=== PATIENT | male | born 1960 | race Caucasian/White ===

== ENCOUNTER 2023-01-16 08:44 | Outpatient (CLI) | payer BC ==
[2023-01-16] MEDS ORDERED: Iopamidol-370 76% 500 ML MDV (1 ML CHARGE) ONE (13:58)
== END 2023-01-16 08:45 | disposition home or self-care (01) ==
LOC: BICCT 08:44
PROVIDERS: ATTEND Internal Medicine
DX: C61 Malignant neoplasm of prostate (principal); C79.89 Secondary malignant neoplasm of other specified sites; R59.0 Localized enlarged lymph nodes; R91.8 Other nonspecific abnormal finding of lung field
CPT/HCPCS: 71260; 74177; 82565; Q9967

== ENCOUNTER 2023-07-10 14:35 | Inpatient (IN) | payer BC ==
[2023-07-10] MEDS ORDERED: dilTIAZem 125 MG/25 ML SDV ONE (15:04)
[2023-07-10] MEDS ORDERED: Iopamidol-370 76% 500 ML MDV (1 ML CHARGE) ONE (15:20)
[2023-07-10 15:26] LABS: #Monocytes 0.6 thou/uL (0.11-0.59); #Neutrophils 5.1 thou/uL (1.40-6.50); %Basophils 0.5 % (0.0-1.0); %Eosinophils 0.3 % (0.0-10.0); %Lymphocytes 13.4 % (21.0-51.0); %Neutrophils 76.6 % (42.0-75.0); Hematocrit 39.9 % (42.0-52.0); Hemoglobin 14.2 g/dL (14.0-18.0); Mean Corpuscular HGB CONC 35.6 g/dL (32.0-36.0); Mean Corpuscular Volume 89.9 fl (78.0-98.0); Mean Platelet Volume 9.7 fL (7.4-10.4); Platelet Count 172 10x3/uL (130-400); RBC Distribution Width 11.9 % (11.5-14.5); Red Blood Cell (RBC) Count 4.44 mill/uL (4.70-6.10); White Blood Cell (WBC) Count 6.6 10x3/uL (4.8-10.8)
[2023-07-10 15:44] LABS: ALT (SGPT) 10 U/L (8-55); AST (SGOT) 14 U/L (5-34); Albumin 3.7 g/dL (3.4-4.8); Alkaline Phosphatase 169 U/L (40-110); Anion Gap 15 mmol/L (10-20); BUN (Urea Nitrogen) 11 mg/dL (8.4-25.7); Bilirubin, Total 1.3 mg/dL (0.2-1.2); Calc. Creatinine Clearance 0 mL/min (70-130); Calcium 8.6 mg/dL (7.8-10.44); Carbon Dioxide 20 mmol/L (23-31); Chloride 105 mmol/L (98-107); Estimated GFR 48; Globulin 2.5 g/dL (2.4-3.5); Glucose 132 mg/dL (80-115); Magnesium 1.9 mg/dL (1.6-2.6); Potassium 3.4 mmol/L (3.5-5.1); Protein, Total 6.2 g/dL (5.8-8.1); Sodium 137 mmol/L (136-145)
[2023-07-10 15:48] LABS: Troponin I 0.075 ng/mL (< 0.028)
[2023-07-10 19:02] LABS: Bacteria/HPF None Seen HPF (None Seen); Bilirubin Negative (Negative); Blood, Urine 3+ (Negative); CAUTI Indications for Culture Dysuria,urgency,freq; Clarity Clear (Clear); Glucose, Urine (Dipstick) Normal (Negative); Ketone, Urine 10 mg/dL (Negative); Leukocyte Negative Leu/uL (Negative); Nitrite Negative (Negative); Protein, Urine (Dipstick) 20 mg/dL (Neg-Trace); RBC/HPF 21-50 HPF (0-3); Specific Gravity, Urine 1.019 (1.002-1.036); Squamous Epithelial 0-3 HPF (0-3); Urobilinogen Normal mg/dL (Less than 2); WBC/HPF 0-3 HPF (0-3)
[2023-07-10 19:03] LABS: Urine Culture Reflex No No
[2023-07-10 20:53] LABS: Troponin I 0.069 ng/mL (< 0.028)
[2023-07-10] MEDS ORDERED: HYDROcodone/Acetaminophen 5/325 mg Tablet PO PRN (21:53)
[2023-07-10] MEDS ORDERED: Ondansetron ODT 4 MG TAB PO PRN (21:53)
[2023-07-10] MEDS ORDERED: Electrolyte Replacement Protocol 1 EACH FS SCH (21:55)
[2023-07-11 00:23] LABS: Troponin I 0.058 ng/mL (< 0.028)
[2023-07-11] MEDS: Magnesium 2 GM/50 ML(in water) 2 GM in Premix 1 BAG IVPB SCH (00:37)
[2023-07-11] MEDS: Apixaban 5 MG TAB PO SCH ×3 (00:39→21:38)
[2023-07-11] MEDS: Potassium Chloride 20 MEQ TAB PO SCH ×2 (00:39→08:23)
[2023-07-11] MEDS: Acetaminophen 325 MG TAB PO PRN (00:40)
[2023-07-11] MEDS: Tamsulosin HCl 0.4 MG CAP PO SCH ×2 (00:40→21:38)
[2023-07-11 04:52] LABS: #Eosinphils 0.1 thou/uL (0.0-0.7); #Monocytes 0.6 thou/uL (0.11-0.59); #Neutrophils 4.3 thou/uL (1.40-6.50); %Basophils 0.3 % (0.0-1.0); %Eosinophils 1.1 % (0.0-10.0); %Monocytes 9.4 % (0.0-10.0); %Neutrophils 65.9 % (42.0-75.0); Hematocrit 40.5 % (42.0-52.0); Hemoglobin 13.9 g/dL (14.0-18.0); Mean Corpuscular HGB CONC 34.3 g/dL (32.0-36.0); Mean Corpuscular Hemoglobin 31.3 pg (27.0-31.0); Mean Corpuscular Volume 91.2 fl (78.0-98.0); Mean Platelet Volume 10.4 fL (7.4-10.4); Platelet Count 167 10x3/uL (130-400); RBC Distribution Width 12.2 % (11.5-14.5); Red Blood Cell (RBC) Count 4.44 mill/uL (4.70-6.10); White Blood Cell (WBC) Count 6.6 10x3/uL (4.8-10.8)
[2023-07-11 05:19] LABS: Anion Gap 14 mmol/L (10-20); BUN (Urea Nitrogen) 13 mg/dL (8.4-25.7); Calc. Creatinine Clearance 78 mL/min (70-130); Calcium 8.7 mg/dL (7.8-10.44); Carbon Dioxide 21 mmol/L (23-31); Chloride 109 mmol/L (98-107); Estimated GFR 61; Glucose 89 mg/dL (80-115); Potassium 3.5 mmol/L (3.5-5.1); Sodium 140 mmol/L (136-145)
[2023-07-11] MEDS: Famotidine 20 MG TAB PO SCH (08:24)
[2023-07-11 13:27] LABS: Potassium 3.4 mmol/L (3.5-5.1)
[2023-07-11] MEDS ORDERED: dilTIAZem 125 MG in Sodium Chloride 0.9% 100 ML IVPB SCH (14:00)
[2023-07-11] MEDS ORDERED: Metoprolol Tartrate 50 MG TAB PO SCH (15:00)
[2023-07-11] MEDS ORDERED: oxyCODONE/Acetaminophen 5 mg/325 mg Tablet PO PRN (15:10)
[2023-07-11] MEDS: Lactated Ringer's 1,000 ML IV SCH (15:43)
[2023-07-11] MEDS: Metoprolol Tartrate 50 MG TAB PO SCH (15:43)
[2023-07-11] MEDS ORDERED: Metoprolol Tartrate 25 MG TAB PO SCH (21:00)
[2023-07-11] MEDS: Metoprolol Tartrate 100 MG TAB PO SCH (23:06)
[2023-07-12 04:33] LABS: #Eosinphils 0.1 thou/uL (0.0-0.7); #Monocytes 0.7 thou/uL (0.11-0.59); #Neutrophils 5.7 thou/uL (1.40-6.50); %Basophils 0.5 % (0.0-1.0); %Eosinophils 1.2 % (0.0-10.0); %Lymphocytes 18.1 % (21.0-51.0); %Monocytes 8.6 % (0.0-10.0); %Neutrophils 71.2 % (42.0-75.0); Hematocrit 40.3 % (42.0-52.0); Hemoglobin 13.1 g/dL (14.0-18.0); Mean Corpuscular HGB CONC 32.5 g/dL (32.0-36.0); Mean Corpuscular Hemoglobin 32.1 pg (27.0-31.0); Mean Corpuscular Volume 98.8 fl (78.0-98.0); Mean Platelet Volume 9.9 fL (7.4-10.4); Platelet Count 181 10x3/uL (130-400); RBC Distribution Width 12.2 % (11.5-14.5); Red Blood Cell (RBC) Count 4.08 mill/uL (4.70-6.10); White Blood Cell (WBC) Count 8.1 10x3/uL (4.8-10.8)
[2023-07-12 05:06] LABS: Anion Gap 11 mmol/L (10-20); BUN (Urea Nitrogen) 15 mg/dL (8.4-25.7); Calc. Creatinine Clearance 76 mL/min (70-130); Calcium 8.7 mg/dL (7.8-10.44); Carbon Dioxide 24 mmol/L (23-31); Chloride 109 mmol/L (98-107); Estimated GFR 60; Glucose 103 mg/dL (80-115); Potassium 4.2 mmol/L (3.5-5.1); Sodium 140 mmol/L (136-145)
[2023-07-12] MEDS: predniSONE 5 MG TAB PO SCH (09:41)
[2023-07-12] MEDS: Atorvastatin Calcium 40 MG TAB PO SCH (09:42)
[2023-07-12] MEDS: Lisinopril 10 MG TAB PO SCH (09:43)
[2023-07-12] MEDS: Folic Acid 1 MG TAB PO SCH (09:43)
[2023-07-12] MEDS: ABIRATERONE ACETATE 500 MG PO SCH (09:57)
[2023-07-12] MEDS: Lactated Ringer's 1,000 ML IV SCH (16:24)
[2023-07-13] MEDS: Metoprolol Tartrate 5 MG (5 mL) VIAL IVP SCH (00:56)
[2023-07-13] MEDS ORDERED: Metoprolol Tartrate 5 MG (5 mL) VIAL IVP SCH (01:30)
[2023-07-13] MEDS ORDERED: hydrALAZINE 25 MG TAB PO SCH (01:45)
[2023-07-13] MEDS: Lisinopril 5 MG TAB PO SCH (02:47)
[2023-07-13 03:06] LABS: #Basophils 0.1 thou/uL (0.0-0.2); #Eosinphils 0.1 thou/uL (0.0-0.7); #Monocytes 0.7 thou/uL (0.11-0.59); #Neutrophils 5.2 thou/uL (1.40-6.50); %Basophils 0.7 % (0.0-1.0); %Eosinophils 1.8 % (0.0-10.0); %Lymphocytes 19.7 % (21.0-51.0); %Monocytes 8.6 % (0.0-10.0); %Neutrophils 68.9 % (42.0-75.0); Hematocrit 36.7 % (42.0-52.0); Hemoglobin 12.7 g/dL (14.0-18.0); Mean Corpuscular HGB CONC 34.6 g/dL (32.0-36.0); Mean Corpuscular Hemoglobin 31.8 pg (27.0-31.0); Mean Platelet Volume 9.9 fL (7.4-10.4); Platelet Count 193 10x3/uL (130-400); RBC Distribution Width 11.9 % (11.5-14.5); White Blood Cell (WBC) Count 7.6 10x3/uL (4.8-10.8)
[2023-07-13 03:09] LABS: Mean Corpuscular Volume 91.8 fl (78.0-98.0)
[2023-07-13 03:33] LABS: Troponin I 0.036 ng/mL (< 0.028)
[2023-07-13 03:46] LABS: Anion Gap 11 mmol/L (10-20); BUN (Urea Nitrogen) 14 mg/dL (8.4-25.7); Calc. Creatinine Clearance 71 mL/min (70-130); Carbon Dioxide 27 mmol/L (23-31); Chloride 107 mmol/L (98-107); Estimated GFR 55; Glucose 92 mg/dL (80-115); Magnesium 1.9 mg/dL (1.6-2.6); Potassium 4.2 mmol/L (3.5-5.1); Sodium 141 mmol/L (136-145)
[2023-07-13] MEDS: Magnesium 2 GM/50 ML(in water) 2 GM in Premix 1 BAG IVPB SCH (08:31)
[2023-07-13] MEDS: Lactated Ringer's 1,000 ML IV SCH (12:14)
[2023-07-13] MEDS: Metoprolol Tartrate 50 MG TAB PO SCH (13:45)
[2023-07-13] MEDS: Enoxaparin 100 MG (1 mL) SYRINGE SC SCH (13:46)
[2023-07-13] MEDS: Metoprolol Tartrate 100 MG TAB PO SCH (21:21)
[2023-07-14 04:25] LABS: #Eosinphils 0.1 thou/uL (0.0-0.7); #Monocytes 0.5 thou/uL (0.11-0.59); #Neutrophils 4.5 thou/uL (1.40-6.50); %Basophils 0.5 % (0.0-1.0); %Eosinophils 2.1 % (0.0-10.0); %Lymphocytes 20.2 % (21.0-51.0); %Monocytes 8.2 % (0.0-10.0); %Neutrophils 68.8 % (42.0-75.0); Hematocrit 35.7 % (42.0-52.0); Hemoglobin 12.3 g/dL (14.0-18.0); Mean Corpuscular HGB CONC 34.5 g/dL (32.0-36.0); Mean Corpuscular Hemoglobin 31.2 pg (27.0-31.0); Mean Corpuscular Volume 90.6 fl (78.0-98.0); Mean Platelet Volume 10.2 fL (7.4-10.4); Platelet Count 183 10x3/uL (130-400); RBC Distribution Width 11.9 % (11.5-14.5); Red Blood Cell (RBC) Count 3.94 mill/uL (4.70-6.10); White Blood Cell (WBC) Count 6.6 10x3/uL (4.8-10.8)
[2023-07-14 04:55] LABS: Anion Gap 10 mmol/L (10-20); BUN (Urea Nitrogen) 13 mg/dL (8.4-25.7); Calc. Creatinine Clearance 78 mL/min (70-130); Calcium 8.5 mg/dL (7.8-10.44); Carbon Dioxide 25 mmol/L (23-31); Chloride 108 mmol/L (98-107); Estimated GFR 62; Glucose 115 mg/dL (80-115); Sodium 140 mmol/L (136-145)
[2023-07-14] MEDS: Potassium Bicarbonate/Cit Ac 20 MEQ TAB PO SCH (07:43)
[2023-07-14] MEDS: Enoxaparin 100 MG (1 mL) SYRINGE SC SCH (09:39)
[2023-07-14 14:38] LABS: Potassium 3.9 mmol/L (3.5-5.1)
[2023-07-15 04:46] LABS: #Eosinphils 0.1 thou/uL (0.0-0.7); #Monocytes 0.5 thou/uL (0.11-0.59); #Neutrophils 3.9 thou/uL (1.40-6.50); %Basophils 0.3 % (0.0-1.0); %Eosinophils 2.1 % (0.0-10.0); %Lymphocytes 21.4 % (21.0-51.0); %Monocytes 8.9 % (0.0-10.0); Hematocrit 33.9 % (42.0-52.0); Hemoglobin 11.3 g/dL (14.0-18.0); Mean Corpuscular HGB CONC 33.3 g/dL (32.0-36.0); Mean Corpuscular Hemoglobin 31.1 pg (27.0-31.0); Mean Platelet Volume 10.4 fL (7.4-10.4); Platelet Count 185 10x3/uL (130-400); Red Blood Cell (RBC) Count 3.63 mill/uL (4.70-6.10); White Blood Cell (WBC) Count 5.9 10x3/uL (4.8-10.8)
[2023-07-15 04:55] LABS: Mean Corpuscular Volume 93.4 fl (78.0-98.0)
[2023-07-15 05:20] LABS: Anion Gap 13 mmol/L (10-20); BUN (Urea Nitrogen) 17 mg/dL (8.4-25.7); Calc. Creatinine Clearance 77 mL/min (70-130); Calcium 8.4 mg/dL (7.8-10.44); Carbon Dioxide 26 mmol/L (23-31); Chloride 107 mmol/L (98-107); Estimated GFR 58; Glucose 91 mg/dL (80-115); Potassium 3.6 mmol/L (3.5-5.1); Sodium 142 mmol/L (136-145)
[2023-07-15] MEDS: Amlodipine 10 MG TAB PO SCH (14:50)
[2023-07-15] MEDS: Calcium Carbonate 500 MG ChewTAB PO PRN (16:27)
[2023-07-15] MEDS: oxyCODONE/Acetaminophen 5 mg/325 mg Tablet PO PRN (18:48)
[2023-07-15] MEDS: hydrALAZINE 20 MG/ML VIAL SLOW IVP SCH (22:18)
[2023-07-16 04:33] LABS: #Eosinphils 0.1 thou/uL (0.0-0.7); #Monocytes 0.5 thou/uL (0.11-0.59); #Neutrophils 5.4 thou/uL (1.40-6.50); %Basophils 0.4 % (0.0-1.0); %Eosinophils 1.1 % (0.0-10.0); %Monocytes 7.3 % (0.0-10.0); %Neutrophils 73.9 % (42.0-75.0); Hematocrit 35.1 % (42.0-52.0); Hemoglobin 12.2 g/dL (14.0-18.0); Mean Corpuscular HGB CONC 34.8 g/dL (32.0-36.0); Mean Corpuscular Hemoglobin 31.3 pg (27.0-31.0); Mean Platelet Volume 10.2 fL (7.4-10.4); Platelet Count 187 10x3/uL (130-400); RBC Distribution Width 11.9 % (11.5-14.5); White Blood Cell (WBC) Count 7.3 10x3/uL (4.8-10.8)
[2023-07-16 04:53] LABS: Anion Gap 10 mmol/L (10-20); BUN (Urea Nitrogen) 10 mg/dL (8.4-25.7); Calc. Creatinine Clearance 90 mL/min (70-130); Calcium 8.5 mg/dL (7.8-10.44); Carbon Dioxide 28 mmol/L (23-31); Chloride 105 mmol/L (98-107); Estimated GFR 70; Glucose 79 mg/dL (80-115); Potassium 2.9 mmol/L (3.5-5.1); Sodium 140 mmol/L (136-145)
[2023-07-16] MEDS: Potassium Chloride 20 MEQ TAB PO SCH (08:28)
[2023-07-16] MEDS: Amlodipine 10 MG TAB PO SCH (08:29)
[2023-07-16] MEDS: Lisinopril 10 MG TAB PO SCH (08:29)
[2023-07-17 04:29] LABS: #Eosinphils 0.1 thou/uL (0.0-0.7); #Monocytes 0.6 thou/uL (0.11-0.59); #Neutrophils 3.7 thou/uL (1.40-6.50); %Basophils 0.4 % (0.0-1.0); %Eosinophils 1.6 % (0.0-10.0); %Lymphocytes 21.3 % (21.0-51.0); %Monocytes 9.9 % (0.0-10.0); %Neutrophils 66.4 % (42.0-75.0); Hematocrit 32.9 % (42.0-52.0); Hemoglobin 11.3 g/dL (14.0-18.0); Mean Corpuscular HGB CONC 34.3 g/dL (32.0-36.0); Mean Corpuscular Hemoglobin 31.7 pg (27.0-31.0); Mean Corpuscular Volume 92.2 fl (78.0-98.0); Mean Platelet Volume 9.9 fL (7.4-10.4); Platelet Count 194 10x3/uL (130-400); RBC Distribution Width 11.9 % (11.5-14.5); Red Blood Cell (RBC) Count 3.57 mill/uL (4.70-6.10); White Blood Cell (WBC) Count 5.5 10x3/uL (4.8-10.8)
[2023-07-17 05:02] LABS: Anion Gap 12 mmol/L (10-20); BUN (Urea Nitrogen) 13 mg/dL (8.4-25.7); Calc. Creatinine Clearance 90 mL/min (70-130); Calcium 8.5 mg/dL (7.8-10.44); Carbon Dioxide 23 mmol/L (23-31); Chloride 109 mmol/L (98-107); Estimated GFR 70; Glucose 87 mg/dL (80-115); Potassium 3.5 mmol/L (3.5-5.1); Sodium 140 mmol/L (136-145)
[2023-07-17] MEDS: Potassium Chloride 20 MEQ TAB PO SCH (09:10)
[2023-07-17 10:55] VITALS: BMI 32.1
[2023-07-17] MEDS ORDERED: Lidocaine 1% PF 5 ML VIAL ONE (13:08)
[2023-07-17] MEDS ORDERED: LevoFLOXacin D5W 500 mg (100 mL) BAG ONE (13:08)
[2023-07-17] MEDS ORDERED: fentaNYL PF 100 MCG/2 ML SYRINGE ONE (13:08)
[2023-07-17] MEDS ORDERED: PHENYLEPHRINE-NS 100 MCG/ML 10 ML SYRINGE ONE (13:08)
[2023-07-17] MEDS ORDERED: PROPOFOL 20 ML ONE (13:09)
[2023-07-17] MEDS ORDERED: Dexamethasone 4 mg/ml Vial ONE (13:44)
[2023-07-17] MEDS ORDERED: Ondansetron PF 4 MG/2 ML Vial ONE (13:44)
[2023-07-17] MEDS ORDERED: fentaNYL 50 mcg/mL 1 mL Vial ONE ×2 (14:00→15:22)
[2023-07-17] MEDS ORDERED: Ondansetron HCl/PF 4 MG/2 ML Vial IVP PRN (14:10)
[2023-07-17] MEDS ORDERED: Promethazine HCl 25 MG/ML VIAL IM PRN (14:10)
[2023-07-17 17:42] VITALS: BP 163/80; TEMP 97.8
[2023-07-26 13:13] LABS: Color Orange (.); Uric Acid 100 % (.)
== END 2023-07-17 18:11 | disposition home or self-care (01) | DRG 659 ==
LOC: ERS 14:35 → ERHOLD 20:08 → 2NO 22:34 → OBSVTOIN 07-12 14:57
PROVIDERS: ADMIT Student in an Organized Health Care Education/Training Program; ATTEND Hospitalist
PROC: 0T778DZ Dilation of Left Ureter with Intraluminal Device, Via Natural or Artificial Opening Endoscopic (ICD-10-PCS; principal; 2023-07-17)
PROC: 0TC78ZZ Extirpation of Matter from Left Ureter, Via Natural or Artificial Opening Endoscopic (ICD-10-PCS; 2023-07-17)
DX: N13.2 Hydronephrosis with renal and ureteral calculous obstruction (principal); I21.A1 Myocardial infarction type 2; N17.9 Acute kidney failure, unspecified; C61 Malignant neoplasm of prostate; I10 Essential (primary) hypertension; I25.10 Atherosclerotic heart disease of native coronary artery without angina pectoris; E87.6 Hypokalemia; Z95.5 Presence of coronary angioplasty implant and graft; Z79.01 Long term (current) use of anticoagulants; Z79.899 Other long term (current) drug therapy; E86.1 Hypovolemia; E86.0 Dehydration; E78.5 Hyperlipidemia, unspecified; I48.0 Paroxysmal atrial fibrillation
CPT/HCPCS: 36415; 70450; 71045; 72148; 74177; 74420; 80048; 80053; 81001; 82365; 83735; 83880; 84484; 85025; 88300; 93005; 93010; 96365; 96366; 96375; C1747; C1769; C2617; G0378; J0360; J1100; J1650; J1956; J2405; J2704; J3010; J3475; J7120; J7512; Q9967

== ENCOUNTER 2023-12-15 09:14 | Outpatient (CLI) | payer BC | END 2023-12-15 09:15 | disposition home or self-care (01) | LOC: NM 09:14 | PROVIDERS: ATTEND Internal Medicine Hematology & Oncology | DX: C61 Malignant neoplasm of prostate (principal); M54.50 Low back pain, unspecified; M51.37 Other intervertebral disc degeneration, lumbosacral region; C79.51 Secondary malignant neoplasm of bone; M89.9 Disorder of bone, unspecified | CPT/HCPCS: 72158; 78306; A9503 ==

== ENCOUNTER 2024-01-29 09:10 | Day surgery (SDC) | payer BC ==
[2024-01-28 14:41] VITALS: BMI 29.0
[2024-01-29] MEDS ORDERED: PROPOFOL 200 MG/20 ML VIAL ONE (11:36)
[2024-01-29] MEDS ORDERED: Lidocaine 1% PF 5 ML VIAL ONE (11:36)
== END 2024-01-29 13:30 | disposition home or self-care (01) ==
LOC: SDC 09:10
PROVIDERS: ATTEND Internal Medicine Cardiovascular Disease
PROC: 5A2204Z Restoration of Cardiac Rhythm, Single (ICD-10-PCS; principal; 2024-01-29)
PROC: B246ZZ4 Ultrasonography of Right and Left Heart, Transesophageal (ICD-10-PCS; principal; 2024-01-29)
DX: I48.0 Paroxysmal atrial fibrillation (principal); I08.1 Rheumatic disorders of both mitral and tricuspid valves; I10 Essential (primary) hypertension; I25.10 Atherosclerotic heart disease of native coronary artery without angina pectoris; E78.5 Hyperlipidemia, unspecified; C61 Malignant neoplasm of prostate; Z98.890 Other specified postprocedural states; Z95.0 Presence of cardiac pacemaker
CPT/HCPCS: 92960; 93005; 93010; 93312; J2704

== ENCOUNTER 2024-02-27 13:37 | Inpatient (IN) | payer BC ==
[2024-02-27 14:54] LABS: #Basophils 0.04 10x3/uL (0.0-0.2); %Basophils 0.7 % (0.0-1.0); %Eosinophils 0.7 % (0.0-10.0); %Lymphocytes 18.2 % (21.0-51.0); %Monocytes 12.3 % (0.0-10.0); %Neutrophils 66.7 % (42.0-75.0); Hematocrit 36.2 % (42.0-52.0); Hemoglobin 12.1 g/dL (14.0-18.0); Mean Corpuscular HGB CONC 33.4 g/dL (32.0-36.0); Mean Corpuscular Volume 92.8 fL (78.0-98.0); Mean Platelet Volume 9.8 fL (7.4-10.4); Platelet Count 126 10x3/uL (130-400); RBC Distribution Width 14.7 % (11.5-14.5)
[2024-02-27 15:02] LABS: Anion Gap 15 mmol/L (10-20); BUN (Urea Nitrogen) 15 mg/dL (8.4-25.7); Calc. Creatinine Clearance 0 mL/min (70-130); Calcium 8.7 mg/dL (7.8-10.44); Carbon Dioxide 21 mmol/L (23-31); Chloride 106 mmol/L (98-107); Estimated GFR 93; Glucose 100 mg/dL (80-115); Potassium 4.1 mmol/L (3.5-5.1); Sodium 138 mmol/L (136-145)
[2024-02-27] MEDS ORDERED: fentaNYL 50 mcg/mL 1 mL Vial ONE (15:08)
[2024-02-27] MEDS ORDERED: Ondansetron PF 4 MG/2 ML Vial ONE (15:08)
[2024-02-27 15:14] LABS: Troponin I 27.843 ng/mL (< 0.028)
[2024-02-27] MEDS ORDERED: Aspirin Chewable 81 MG TAB ONE (15:29)
[2024-02-27] MEDS ORDERED: Diltiazem HCl/D5W 125 ML ONE (15:29)
[2024-02-27] MEDS ORDERED: Acetaminophen 650 MG Suppository PR PRN (17:24)
[2024-02-27] MEDS ORDERED: Senokot S 8.6-50 MG TAB PO PRN (17:24)
[2024-02-27 17:48] VITALS: BMI 28.0
[2024-02-27] MEDS ORDERED: Morphine 2 MG/ML VIAL ONE (17:52)
[2024-02-27] MEDS ORDERED: Promethazine HCl 25 MG/ML VIAL ONE (17:57)
[2024-02-27] MEDS: Morphine 2 MG/ML VIAL SLOW IVP PRN (18:01)
[2024-02-27] MEDS: Acetaminophen 325 MG TAB PO SCH (18:02)
[2024-02-27] MEDS: Promethazine HCl 12.5 MG in Sodium Chloride 0.9% 50 ML IVPB PRN (18:11)
[2024-02-27] MEDS: Lactated Ringer's 1,000 ML IV SCH (18:12)
[2024-02-27 18:22] LABS: Magnesium 1.9 mg/dL (1.6-2.6)
[2024-02-27] MEDS ORDERED: dilTIAZem 125 MG in Sodium Chloride 0.9% 100 ML IVPB SCH ×2 (18:30→23:15)
[2024-02-27] MEDS ORDERED: Magnesium 2 GM/50 ML BAG (IN WATER) ONE (19:25)
[2024-02-27] MEDS: Magnesium 2 GM/50 ML(in water) 2 GM in Premix 1 BAG IVPB SCH (19:41)
[2024-02-27] MEDS ORDERED: Metoprolol Tartrate 25 MG TAB ONE (20:32)
[2024-02-27] MEDS ORDERED: Famotidine/PF 20 mg/2ml Vial ONE (20:32)
[2024-02-27] MEDS ORDERED: Enoxaparin 100 MG (1 mL) SYRINGE ONE (20:32)
[2024-02-27] MEDS: Enoxaparin 100 MG (1 mL) SYRINGE SC SCH (20:59)
[2024-02-27] MEDS: Famotidine/PF 20 mg/2ml Vial SLOW IVP SCH (21:00)
[2024-02-27] MEDS: Metoprolol Tartrate 25 MG TAB PO SCH (21:00)
[2024-02-27 21:16] LABS: Troponin I 33.911 ng/mL (< 0.028)
[2024-02-28] MEDS ORDERED: Heparin 10,000 UNITS/ 10 ML VIAL ONE (00:38)
[2024-02-28] MEDS ORDERED: fentaNYL 50 mcg/mL 1 mL Vial ONE (00:39)
[2024-02-28] MEDS ORDERED: Adenosine 6 mg (2 mL) VIAL ONE (00:39)
[2024-02-28] MEDS ORDERED: Nitroglycerin 50 MG/250 ML BOT 250 ML ONE (00:40)
[2024-02-28] MEDS ORDERED: Midazolam HCl 2 mg/2 ml Vial ONE (00:40)
[2024-02-28] MEDS ORDERED: Atropine Sulfate 1 mg/10 ml Syringe ONE (00:40)
[2024-02-28] MEDS ORDERED: Verapamil 5 MG/2 ML VIAL ONE (00:40)
[2024-02-28 00:43] LABS: Troponin I 41.874 ng/mL (< 0.028)
[2024-02-28] MEDS ORDERED: TICAGRELOR 90 MG TABLET ONE (01:35)
[2024-02-28] MEDS ORDERED: Aspirin Chewable 81 MG TAB ONE (01:35)
[2024-02-28] MEDS ORDERED: hydrALAZINE 20 MG/ML VIAL ONE (01:59)
[2024-02-28] MEDS: Amiodarone 150 MG, Admixture Fee 1 EACH in Dextrose 5% in Water 100 ML IVPB SCH (02:33)
[2024-02-28] MEDS: Communication Order-Pharmacy FS SCH (02:33)
[2024-02-28 06:50] LABS: Anion Gap 17 mmol/L (10-20); BUN (Urea Nitrogen) 12 mg/dL (8.4-25.7); Calc. Creatinine Clearance 105 mL/min (70-130); Calcium 8.6 mg/dL (7.8-10.44); Carbon Dioxide 22 mmol/L (23-31); Chloride 104 mmol/L (98-107); Estimated GFR 96; Glucose 110 mg/dL (80-115); Potassium 3.9 mmol/L (3.5-5.1); Sodium 139 mmol/L (136-145)
[2024-02-28 07:20] LABS: Hematocrit 37.3 % (42.0-52.0); Hemoglobin 12.8 g/dL (14.0-18.0); Mean Corpuscular HGB CONC 34.3 g/dL (32.0-36.0); Mean Corpuscular Volume 90.3 fL (78.0-98.0); Mean Platelet Volume 10.3 fL (7.4-10.4); Platelet Count 119 10x3/uL (130-400); RBC Distribution Width 14.7 % (11.5-14.5); Red Blood Cell (RBC) Count 4.13 mill/uL (4.70-6.10)
[2024-02-28 07:48] LABS: Burr Cells SLIGHT = 2-5 cells HPF (0-1); Ovalocytes SLIGHT = 2-5 cells HPF (0-1); Platelet Adequacy Comment Platelets Decreased; Polychromasia SLIGHT = 2-3 cells HPF (0-2)
[2024-02-28 07:58] LABS: Troponin I 111.266 ng/mL (< 0.028)
[2024-02-28 08:20] LABS: #Basophils 0.04 10x3/uL (0.0-0.2); %Basophils 0.5 % (0.0-1.0); %Lymphocytes 8.7 % (21.0-51.0); %Monocytes 10.7 % (0.0-10.0); %Neutrophils 76.7 % (42.0-75.0)
[2024-02-28] MEDS: Lisinopril 5 MG TAB PO SCH (08:46)
[2024-02-28] MEDS: Atorvastatin Calcium 40 MG TAB PO SCH (08:46)
[2024-02-28] MEDS: Metoprolol Tartrate 25 MG TAB PO SCH (08:46)
[2024-02-28] MEDS: Aspirin 81 mg Enteric Coated Tablet PO SCH (08:46)
[2024-02-28] MEDS: TICAGRELOR 90 MG TABLET PO SCH (08:46)
[2024-02-28] MEDS ORDERED: Iopamidol 370 76% 100 ML VIAL ONE (10:41)
[2024-02-28] MEDS: oxyCODONE/Acetaminophen 5 mg/325 mg Tablet PO PRN (12:44)
[2024-02-29] MEDS ORDERED: dilTIAZem 125 MG in Sodium Chloride 0.9% 100 ML IVPB SCH (04:00)
[2024-02-29] MEDS: dilTIAZem 25 MG/5 ML VIAL SLOW IVP SCH (04:18)
[2024-02-29] MEDS: Diltiazem HCl/D5W 125 MG in Premix 1 BAG IVPB SCH (04:18)
[2024-02-29 05:17] LABS: #Basophils 0.03 10x3/uL (0.0-0.2); %Basophils 0.3 % (0.0-1.0); %Eosinophils 0.3 % (0.0-10.0); %Lymphocytes 10.6 % (21.0-51.0); %Monocytes 9.1 % (0.0-10.0); %Neutrophils 79.1 % (42.0-75.0); Hematocrit 34.6 % (42.0-52.0); Hemoglobin 12.1 g/dL (14.0-18.0); Mean Corpuscular Hemoglobin 31.4 pg (27.0-31.0); Mean Corpuscular Volume 89.9 fL (78.0-98.0); Mean Platelet Volume 10.5 fL (7.4-10.4); Platelet Count 102 10x3/uL (130-400); RBC Distribution Width 14.7 % (11.5-14.5); Red Blood Cell (RBC) Count 3.85 mill/uL (4.70-6.10)
[2024-02-29] MEDS: Metoprolol Tartrate 5 MG (5 mL) VIAL ONE (05:26)
[2024-02-29 05:40] LABS: Anion Gap 16 mmol/L (10-20); BUN (Urea Nitrogen) 16 mg/dL (8.4-25.7); Calc. Creatinine Clearance 110 mL/min (70-130); Calcium 8.3 mg/dL (7.8-10.44); Carbon Dioxide 20 mmol/L (23-31); Chloride 105 mmol/L (98-107); Estimated GFR 98; Glucose 110 mg/dL (80-115); Potassium 3.3 mmol/L (3.5-5.1); Sodium 138 mmol/L (136-145)
[2024-02-29 06:09] LABS: ALT (SGPT) 23 U/L (8-55); AST (SGOT) 91 U/L (5-34); Albumin 3.2 g/dL (3.4-4.8); Alkaline Phosphatase 297 U/L (40-110); Anion Gap 15 mmol/L (10-20); BUN (Urea Nitrogen) 16 mg/dL (8.4-25.7); Bilirubin, Direct 0.6 mg/dL (0.1-0.3); Bilirubin, Total 1.8 mg/dL (0.2-1.2); Calc. Creatinine Clearance 111 mL/min (70-130); Calcium 8.4 mg/dL (7.8-10.44); Carbon Dioxide 20 mmol/L (23-31); Chloride 106 mmol/L (98-107); Estimated GFR 98; Globulin 2.9 g/dL (2.4-3.5); Glucose 106 mg/dL (80-115); Potassium 3.5 mmol/L (3.5-5.1); Protein, Total 6.1 g/dL (5.8-8.1); Sodium 137 mmol/L (136-145)
[2024-02-29] MEDS: Amiodarone 150 MG, Admixture Fee 1 EACH in Dextrose 5% in Water 100 ML IVPB SCH ×2 (06:14→09:51)
[2024-02-29] MEDS: Amiodarone 450 MG in Dextrose 5% in Water 250 ML IVPB SCH (06:30)
[2024-02-29] MEDS ORDERED: Etomidate 40 MG (20 mL) VIAL ONE (08:04)
[2024-02-29] MEDS ORDERED: PROPOFOL 20 ML ONE (08:05)
[2024-02-29] MEDS ORDERED: Ketamine In 0.9 % NaCl 50 MG/5 ML SYRINGE ONE (08:05)
[2024-02-29] MEDS: Enoxaparin 100 MG (1 mL) SYRINGE SC SCH (11:10)
[2024-02-29] MEDS: Clopidogrel Bisulfate 300 MG TAB PO SCH (11:10)
[2024-02-29] MEDS: Clopidogrel Bisulfate 75 MG TAB PO SCH (11:11)
[2024-02-29] MEDS: Empagliflozin 10 MG TAB PO SCH (11:11)
[2024-02-29] MEDS: Metoprolol Tartrate 25 MG TAB PO SCH (14:42)
[2024-02-29] MEDS: Sacubitril 24MG/Valsartan 26 MG TAB PO SCH (19:48)
[2024-02-29] MEDS: Atorvastatin Calcium 40 MG TAB PO SCH (19:49)
[2024-03-01] MEDS: Metoprolol Tartrate 25 MG TAB PO SCH (08:05)
[2024-03-01 16:35] VITALS: BMI 28.0
[2024-03-01] MEDS: Sacubitril 24MG/Valsartan 26 MG TAB PO SCH (21:52)
[2024-03-02 07:52] LABS: Hematocrit 32.7 % (42.0-52.0); Hemoglobin 10.8 g/dL (14.0-18.0); Mean Corpuscular Hemoglobin 31.4 pg (27.0-31.0); Mean Corpuscular Volume 95.1 fL (78.0-98.0); Mean Platelet Volume 10.2 fL (7.4-10.4); Platelet Count 100 10x3/uL (130-400); RBC Distribution Width 15.2 % (11.5-14.5); Red Blood Cell (RBC) Count 3.44 mill/uL (4.70-6.10)
[2024-03-02 08:10] LABS: Anion Gap 12 mmol/L (10-20); BUN (Urea Nitrogen) 16 mg/dL (8.4-25.7); Calc. Creatinine Clearance 106 mL/min (70-130); Calcium 8.3 mg/dL (7.8-10.44); Carbon Dioxide 22 mmol/L (23-31); Chloride 109 mmol/L (98-107); Estimated GFR 96; Glucose 110 mg/dL (80-115); Potassium 3.1 mmol/L (3.5-5.1); Sodium 140 mmol/L (136-145)
[2024-03-02] MEDS: Amiodarone 200 MG TAB PO SCH (10:06)
[2024-03-02] MEDS: Sacubitril 49 MG/Valsartan 51 MG TABLET PO SCH (10:06)
[2024-03-02] MEDS: Acetaminophen 325 MG TAB PO PRN (14:49)
[2024-03-03 04:54] LABS: Anion Gap 13 mmol/L (10-20); BUN (Urea Nitrogen) 14 mg/dL (8.4-25.7); Calc. Creatinine Clearance 101 mL/min (70-130); Calcium 8.3 mg/dL (7.8-10.44); Carbon Dioxide 23 mmol/L (23-31); Chloride 108 mmol/L (98-107); Estimated GFR 94; Glucose 98 mg/dL (80-115); Sodium 141 mmol/L (136-145)
[2024-03-03] MEDS: Potassium Chloride 20 MEQ in Premix 1 BAG IVPB SCH (08:30)
[2024-03-03] MEDS ORDERED: Electrolyte Replacement Protocol 1 EACH FS SCH (10:00)
[2024-03-03] MEDS ORDERED: Electrolyte Replacement Protocol FS PRN (10:15)
[2024-03-03] MEDS: Potassium Chloride 20 MEQ TAB PO SCH ×3 (10:32→23:02)
[2024-03-03] MEDS: Apixaban 5 MG TAB PO SCH (10:48)
[2024-03-03 16:27] LABS: Potassium 3.1 mmol/L (3.5-5.1)
[2024-03-03] MEDS ORDERED: Magnesium 2 GM/50 ML(in water) 2 GM in Premix 1 BAG IVPB SCH (19:45)
[2024-03-03] MEDS: Magnesium Oxide 400 MG TAB PO SCH (20:13)
[2024-03-04 05:13] LABS: #Basophils 0.05 10x3/uL (0.0-0.2); %Basophils 0.9 % (0.0-1.0); %Eosinophils 3.3 % (0.0-10.0); %Lymphocytes 22.3 % (21.0-51.0); %Neutrophils 61.9 % (42.0-75.0); Hematocrit 32.5 % (42.0-52.0); Hemoglobin 10.4 g/dL (14.0-18.0); Mean Corpuscular Hemoglobin 31.1 pg (27.0-31.0); Mean Corpuscular Volume 97.3 fL (78.0-98.0); Mean Platelet Volume 10.9 fL (7.4-10.4); Platelet Count 109 10x3/uL (130-400); RBC Distribution Width 15.7 % (11.5-14.5); Red Blood Cell (RBC) Count 3.34 mill/uL (4.70-6.10)
[2024-03-04 05:32] LABS: ALT (SGPT) 18 U/L (8-55); AST (SGOT) 28 U/L (5-34); Albumin 2.9 g/dL (3.4-4.8); Alkaline Phosphatase 232 U/L (40-110); Anion Gap 12 mmol/L (10-20); BUN (Urea Nitrogen) 14 mg/dL (8.4-25.7); Bilirubin, Total 0.8 mg/dL (0.2-1.2); Calc. Creatinine Clearance 106 mL/min (70-130); Calcium 8.6 mg/dL (7.8-10.44); Carbon Dioxide 21 mmol/L (23-31); Chloride 113 mmol/L (98-107); Estimated GFR 96; Globulin 2.4 g/dL (2.4-3.5); Glucose 93 mg/dL (80-115); Potassium 4.2 mmol/L (3.5-5.1); Protein, Total 5.3 g/dL (5.8-8.1); Sodium 142 mmol/L (136-145)
[2024-03-04] MEDS ORDERED: PROPOFOL 0 ML ONE (06:57)
[2024-03-04] MEDS: Ondansetron ODT 8 MG TAB SL PRN (11:57)
[2024-03-04 15:53] VITALS: BP 145/86; TEMP 97.9
== END 2024-03-04 18:14 | disposition home or self-care (01) | DRG 321 ==
LOC: ERS 13:37 → ERHOLD 16:17 → SURG A 02-28 00:58 → CCU 02-28 02:26 → 2SW 02-28 19:00 → CCU 02-29 07:45 → 2NO 03-01 21:27
PROVIDERS: ADMIT Internal Medicine; ATTEND Internal Medicine
PROC: 027034Z Dilation of Coronary Artery, One Artery with Drug-eluting Intraluminal Device, Percutaneous Approach (ICD-10-PCS; principal; 2024-02-27)
PROC: 4A023N7 Measurement of Cardiac Sampling and Pressure, Left Heart, Percutaneous Approach (ICD-10-PCS; 2024-02-27)
PROC: B2111ZZ Fluoroscopy of Multiple Coronary Arteries using Low Osmolar Contrast (ICD-10-PCS; 2024-02-27)
PROC: 5A2204Z Restoration of Cardiac Rhythm, Single (ICD-10-PCS; 2024-02-29)
PROC: B24BZZ4 Ultrasonography of Heart with Aorta, Transesophageal (ICD-10-PCS; 2024-02-29)
DX: I21.4 Non-ST elevation (NSTEMI) myocardial infarction (principal); I50.21 Acute systolic (congestive) heart failure; C79.51 Secondary malignant neoplasm of bone; I48.19 Other persistent atrial fibrillation; I25.10 Atherosclerotic heart disease of native coronary artery without angina pectoris; E78.5 Hyperlipidemia, unspecified; C61 Malignant neoplasm of prostate; I73.9 Peripheral vascular disease, unspecified; G89.29 Other chronic pain; M54.9 Dorsalgia, unspecified; I48.0 Paroxysmal atrial fibrillation; E87.6 Hypokalemia; I25.5 Ischemic cardiomyopathy; Z92.3 Personal history of irradiation; Z95.5 Presence of coronary angioplasty implant and graft; Z79.01 Long term (current) use of anticoagulants; Z79.899 Other long term (current) drug therapy; Z79.02 Long term (current) use of antithrombotics/antiplatelets; Z79.52 Long term (current) use of systemic steroids; I11.0 Hypertensive heart disease with heart failure
CPT/HCPCS: 36415; 36416; 71045; 80048; 80053; 80076; 83735; 83880; 84443; 84484; 85025; 85027; 85347; 92941; 92960; 93005; 93010; 93306; 93312; 93458; 96374; 97139; 99152; 99153; C1725; C1874; C1887; C1894; C9606; J0153; J0282; J0360; J0461; J1644; J1650; J2250; J2272; J2405; J2550; J2704; J3010; J3475; J3480; J3490; J7070; J7120; Q0162; Q9967